=== PATIENT | male | born 1970 | race Two or more races ===

== ENCOUNTER 2023-05-14 15:39 | Inpatient (IN) | payer OTHER ==
[~2023-05-14] VITALS: Ht 165.1 cm; Wt 68.0 kg
--- NOTE | 2023-05-14 17:37 | NUR ---
PTE ALERTA Y ORIENTADO X3 ESFERAS QUIEN REFIERE SAMEER MUCHO BAJO EL AVANI HOYN POR CYR TRABAJO Y LUEGO SINTIO DEBILIDAD Y MAREOS,PAREMEDICOS LO ATENDIERON EN EL LUGAR,LE BRINDARON AGUA Y REFIERE SENTIRSE MEJOR.REFIRERE PRESION AQUILES POR PARAMEDICOS.AL MOMENTO REFIERE SENTIRSE KEREN.SE VALENTINE BP MANUAL Y SE REALIZA EKG,SE MUESTRA A DR GRANT Y SE UBICA EN PASILLO.
[2023-05-14] MEDS ORDERED: AVAPRO75 MG (17:40)
--- NOTE | 2023-05-14 18:55 | NUR ---
EVALUA PTE. SE EDUCA SOBRE [place] MEDICO, REFIERE ENTENDER. SE REALIZAN MUESTRAS DE LABORATORIO BAJO MEDIDAS ASEPTICAS. SE REALIZA EKG. PTE MANEJADO POR . PENDIENTE RE-VALUACION MEDICA.
== END 2023-05-15 16:21 | disposition home or self-care (01) | DRG 923 ==
LOC: ER 15:39 → MEDJ 22:26 → SEC-K 22:26 → MEDJ 23:32
PROVIDERS: General Practice; Nurse Practitioner Family; ADMIT Internal Medicine; ATTEND Internal Medicine
DX: T67.8XXA Other effects of heat and light, initial encounter (principal); E87.1 Hypo-osmolality and hyponatremia; E86.0 Dehydration; R20.2 Paresthesia of skin; X32.XXXA Exposure to sunlight, initial encounter; Y93.01 Activity, walking, marching and hiking; Y92.89 Other specified places as the place of occurrence of the external cause; Y99.8 Other external cause status; Z20.822 Contact with and (suspected) exposure to COVID-19